=== PATIENT | female | born 1980 | race Caucasian/White ===

== ENCOUNTER 2017-05-20 09:24 | Day surgery (SDC) | END 2017-05-20 15:40 | disposition home or self-care (01) | DX: S73.101D Unspecified sprain of right hip, subsequent encounter (principal); X58.XXXD Exposure to other specified factors, subsequent encounter | CPT/HCPCS: 29915; 73530; J0131; J0690; J1100; J1885; J2175; J2250; J2370; J2405; J2765; J2795; J3010; Z7512; Z7610 ==

== ENCOUNTER 2018-02-05 21:23 | Emergency (ER) | END 2018-02-05 23:45 | disposition home or self-care (01) ==

== ENCOUNTER 2018-08-25 11:46 | Day surgery (SDC) | END 2018-08-25 16:44 | disposition home or self-care (01) ==